=== PATIENT | female | born 1955 | race Caucasian/White ===

== ENCOUNTER 2017-10-13 11:04 | Outpatient (CLI) | payer OTHER ==
--- NOTE | 2017-10-13 19:37 | XRAY Report ---
DATE OF SERVICE: 10/13/2017 THREE VIEW LEFT FOOT: 10/13/2017 CLINICAL INDICATION: Pain, swelling. AP, lateral, oblique views of the left foot demonstrate mild degenerative changes at the first metatarsophalangeal joint, with mild hallux valgus. There is no evidence of acute fracture or dislocation. No radiopaque foreign body is seen in the soft tissues. IMPRESSION: Mild osteoarthritis, with mild hallux valgus. TD: 10/13/2017 20:35
== END 2017-10-13 11:05 | disposition home or self-care (01) ==
LOC: DI 11:04
PROVIDERS: ATTEND Physician Assistant
DX: M19.072 Primary osteoarthritis, left ankle and foot (principal); M20.12 Hallux valgus (acquired), left foot

== ENCOUNTER 2020-07-23 12:08 | Outpatient (CLI) | payer MEDICARE, OTHER | END 2020-07-23 12:09 | disposition home or self-care (01) | LOC: COV 12:08 | PROVIDERS: ATTEND Family Medicine | DX: R05 Cough (principal); Z20.828 Contact with and (suspected) exposure to other viral communicable diseases; R53.83 Other fatigue; R09.81 Nasal congestion; J02.9 Acute pharyngitis, unspecified; R11.2 Nausea with vomiting, unspecified ==

== ENCOUNTER 2023-09-12 08:48 | Outpatient (CLI) | payer MEDICARE, OTHER ==
[2023-09-12] MEDS ORDERED: DIATR MEGLU/DIATRIZOATE SODIUM 120 ML BOTTLE ONE (09:12)
[2023-09-12] MEDS ORDERED: DIATRIZOATE MEGLU/DIATRIZO SOD 30 ML BOTTLE PO ONE (13:00)
--- NOTE | 2023-09-12 19:38 | CT Report ---
PROCEDURE: ABDOMEN/PELVIS WO INDICATIONS: LLQ ABD PAIN TECHNIQUE: A CT scan of the abdomen and pelvis was performed without the use of intravenous contrast. Images we re recorded and evaluated at appropriate window settings. Reformats: coronal and sagittal. For radiat ion dose reduction, the following was used: automated exposure control, adjustment of mA and/or kV ac cording to patient size. COMPARISON: None. FINDINGS: Image quality: Excellent. Lung bases and heart: Unremarkable. Liver: No solid mass. Gallbladder and biliary tree: No radiopaque stones or wall thickening. No biliary dilation. Spleen: No splenomegaly. Pancreas: No pancreatic ductal dilation. Adrenals: No adrenal nodule. Kidneys and ureters: No hydronephrosis. No renal cystic lesion which requires follow up. No solid mas s. Bowel and peritoneum: No bowel distension. No pathologic free fluid. Diverticulosis without evidence of diverticulitis. Lymph nodes: No central or retroperitoneal adenopathy. Vessels: No infrarenal aortic aneurysm. PELVIS Reproductive organs: Unremarkable. Bladder: No wall thickness, accounting for underdistention. Pelvic lymph nodes: No pelvic adenopathy by size criteria. Bones: No aggressive osseous abnormality. Other: No significant ventral or inguinal hernia. IMPRESSION: No findings to explain the patient's upper quadrant pain. No hydronephrosis or obstructing renal stone. Colonic diverticulosis without evidence of diverticulit is. Reviewed by: Prashanth Saavedra MD on 09/12/2023 7:37 PM PST Approved by: Prashanth Saavedra MD on 09/12/2023 7:37 PM PST Station ID: [id number]
== END 2023-09-12 08:49 | disposition home or self-care (01) ==
LOC: DI 08:48
PROVIDERS: ATTEND Internal Medicine
DX: K57.90 Diverticulosis of intestine, part unspecified, without perforation or abscess without bleeding (principal); R10.30 Lower abdominal pain, unspecified
CPT/HCPCS: 74176; Q9963